=== PATIENT | female | born 1965 | race Caucasian/White ===

== ENCOUNTER → 2023-06-30 11:51 | Outpatient (REF) | payer OTHER, SELFPAY | LOC: MRI 11:51 | PROVIDERS: ATTENDING PHYSICIAN Physician Assistant Surgical; FAMILY PHYSICIAN Registered Nurse | DX: M54.2 Cervicalgia (principal) | CPT/HCPCS: 72141 ==

== ENCOUNTER → 2023-11-10 09:46 | Outpatient (REF) | payer OTHER, SELFPAY | LOC: WDC 09:46 | PROVIDERS: ATTENDING PHYSICIAN Nurse Practitioner Adult Health; FAMILY PHYSICIAN Physician Assistant Medical | DX: N64.4 Mastodynia (principal); N63.21 Unspecified lump in the left breast, upper outer quadrant | CPT/HCPCS: 76642; 77062; 77066 ==

== ENCOUNTER 2024-01-04 06:09 | Inpatient (IN) | payer OTHER, SELFPAY ==
--- NOTE | 2023-12-04 08:22 | CM ---
Patient is scheduled for an elective L TKR on 01/04/24. Spoke with patient prior to surgery via telephone. Introduced role of Orthopedic Navigator. Patient reports that she lives with her and daughter in a two story home. There are two steps
to enter and a flight of steps to the second floor. She sleeps on the first floor where there is a full bathroom. She currently functions independently and uses a cane. She also a rolling walker. She has had VN services through [facility]. PCP is Melina
Sixto.
Discussed orthopedic program and post surgical plans. Reviewed anticipated length of stay and that goal is for her to return home at discharge. Also reviewed outpatient PT. Patient is in agreement with tentative plan and will go directly to
outpatient PT at [facility]. She will have support from her when she goes home.
Patient will complete online education.
Plan: Orthopedic Navigator will remain available to assist with the care of patient and will reassess discharge needs after surgery.
[2023-12-11 13:20] LABS: Hematocrit 43.2 % (37.0-47.0); Hemoglobin 14.6 g/dL (12.0-16.0); Mean Corp Hgb Conc. 33.8 g/dL (33.0-37.0); Mean Corpuscular Hgb 30.6 pg (27.0-31.0); Mean Corpuscular Volume 90.6 fL (81.0-99.0); Mean Platelet Volume 10.8 fL (7.4-10.4); Platelet Count 237 10^3/uL (130-400); Red Blood Cell Count 4.77 10^6/uL (4.20-5.40); Red Cell Dist. Width 12.7 % (11.5-14.5); White Blood Cell Count 6.8 10^3/uL (4.8-10.8)
[2023-12-11 13:40] LABS: ALT (SGPT) 26 U/L (0-35); AST (SGOT) 30 U/L (14-36); Albumin 4.5 g/dl (3.5-5.0); Alkaline Phosphatase 89 U/L (38-126); Blood Urea Nitrogen 17 mg/dl (7-17); Calcium 9.7 mg/dl (8.4-10.2); Carbon Dioxide 29 mmol/L (22-30); Chloride 100 mmol/L (98-107); Glucose 105 mg/dl (70-99); Potassium 4.3 mmol/L (3.5-5.1); Sodium 137 mmol/L (135-145); Total Protein 7.1 g/dl (6.3-8.2); eGFR > 60.00
[2023-12-11 13:53] VITALS: BMI 42.2
[2023-12-11 14:12] LABS: Glycohemoglobin (HgbA1c) 5.2 % (4.0-5.6)
--- NOTE | 2023-12-28 12:15 | PTCARENOTE ---
Romina in anesthesia notified of patient's Dilaudid intrathecal pain pump
[2024-01-01 09:11] VITALS: BMI 42.2
[2024-01-04] VITALS (28 sets, daily range): BP systolic 109–151; BP diastolic 59–110; PULSE 78; BMI 42.2
[2024-01-04] MEDS: NORMOSOL-R 1000 IV ×2 (06:46→12:29)
[2024-01-04] MEDS: CELEBREX 200 MG PO (06:46)
[2024-01-04] MEDS: TYLENOL 650 MG PO ×5 (06:46→23:16)
[2024-01-04] MEDS: DILAUDID 0.5 MG IV ×2 (09:37→09:46)
[2024-01-04] MEDS: MORPHINE SULFATE 4 MG IV (10:02)
[2024-01-04] MEDS: DILAUDID 1 MG IV ×2 (10:20→10:31)
[2024-01-04] MEDS: DEMEROL 50 MG IV (10:46)
--- NOTE | 2024-01-04 11:39 | SUR.PHASEI ---
0950: MD Melo contacted about pt. pain, Pt. is screaming 10/10 pain, restless with all pain being directed towards L-Knee. MD Melo made RN aware to give 4mg of IV Morphine with no relief from the two doses of PRN 0.5mg Dilaudid pushes. With no
relief from morphine MD Melo made RN aware to give 1mg of Dilaudid and then after another 10 minutes later if there is no relief to give another 1mg. If there is no relief from the total two doses of 1mg Dilaudid PRN to follow up with 50mg of
Demerol. 1050: Pt. received the two PRN doses of 1mg push of Dilaudid followed by the 50mg of Demerol with no relief. Trista Orellana and MD Adrian consulted and Trista Orellana at bedside. Pt. appears calm yet still endorses 10/10 pain directed
toward the knee, VSS will continue to monitor at this time.
[2024-01-04] MEDS: TORADOL 15 MG IV ×2 (12:31→19:34)
[2024-01-04] MEDS: DILAUDID 8 MG PO ×2 (12:37→16:37)
--- NOTE | 2024-01-04 12:42 | W.PN.UPDATE ---
Update Note
Progress Note Update
Patient reporting 03/07 pain in PACU-has indwelling pain pump and is opioid tolerant with chronic pain and spinal stenosis with hx lumbar and cervical lami-fusions
--discussed with patient--Dilaudid 8mg po Q4h prn per Dr. Busby instruction-continue pain pump rate
--will include Lyrica, Dexamethasone, IV Toradol, Celecoxib and IV Ativan to address inflammation, spasm and radiculopathy which is pre-existing.
--will take time for full effect and will au-xmuepi-dmohlci vitals-Midodrine if indicated to maintain BP
--- NOTE | 2024-01-04 14:49 | W.PN.UPDATE ---
Update Note
Progress Note Update
Patient seen and examined. VSS. Pulm: nonlabored. CV: regular. Abd: benign. LLE: Calf soft. NVI distally. Able to fully extend. Dressing CDI. Post op xray as expected. Requiring additional pain meds which is expected given her history.
Plan for ASA for DVT prophylaxis. Plan for discharge home tomorrow with outpatient PT on Monday.
[2024-01-04] MEDS: ANCEF 5 IV ×2 (16:05→23:16)
--- NOTE | 2024-01-04 16:11 | PTCARENOTE ---
Patient received from PACU in bed; IVF infusing; Left knee aquacell with scant amount of sanguinous drainage; Patient has positive sensation to bilateral lower extremities; Good movement in RLE; Trace movement in LLE; Pedal pulses +2 to palpation
bilaterally; Patient is alert to self, place, and time; Continuous pulse ox in place per order; Call lozada within reach; Patient oriented to room and unit; Bed in lowest position, wheels locked; Care ongoing
[2024-01-04] MEDS: ABILIFY PO (17:37)
[2024-01-04] MEDS: ASPIRIN 325 MG PO (17:37)
[2024-01-04] MEDS: COLACE 100 MG PO (19:32)
[2024-01-04] MEDS: BACTROBAN 2% OINTMENT 1 APPLIC NASAL (19:32)
[2024-01-04] MEDS: DECADRON 6 MG IV (19:33)
[2024-01-04] MEDS: LYRICA 75 MG PO (19:34)
[2024-01-04] MEDS: SENOKOT 17.2 MG PO (19:34)
[2024-01-04] MEDS: ATIVAN PO (20:00)
[2024-01-04] MEDS: PROTONIX 40 MG PO (21:17)
[2024-01-05 03:52] VITALS: BP 104/48
[2024-01-05] MEDS: TYLENOL PO (04:59)
--- NOTE | 2024-01-05 07:07 | W.PN.ORTHO ---
Today's Communication / Plan
-
Plan for discharge home today. Outpatient PT on Monday
Assessment
.
Distal Motor Intact: Yes
Dressing:
Clean, dry and intact.
Assessment:
Much better this morning regarding pain control following R TKR.
Plan
.
Surgery / Date: 01/04/2024
DVT Prophylaxis: Aspirin
Activity:
Out of bed.
PT/OT
Discharge Plan: Home w/ Outpatient PT
Subjective
.
.:
Patient resting comfortably. Was OOB yesterday and last night. Looks much more comfortable today.
Vital Signs and Labs
.
Vital Signs and Labs:
Lab Results
12/11/23 12:07
12/11/23 12:07
Temp Pulse Resp BP Pulse Ox
98.1 F 60 14 104/48 95
01/05/24 03:52 01/05/24 03:52 01/05/24 03:52 01/05/24 03:52 01/05/24 03:52
Non-invasive Hgb result: 11.8
Physical Exam
-
Pulm: nonlabored
CV: regular
Abd: benign
Ext: NVI distally. Dressing CDI. GRZEGORZ hose tight. Calf soft. Able to fully extend.
[2024-01-05 07:30] VITALS: BP 126/52
[2024-01-05] MEDS: DILAUDID 8 MG PO ×2 (08:00→12:20)
[2024-01-05] MEDS: COLACE 100 MG PO (09:26)
[2024-01-05] MEDS: ABILIFY 10 MG PO (09:27)
[2024-01-05] MEDS: ASPIRIN 325 MG PO (09:27)
[2024-01-05] MEDS: TYLENOL 650 MG PO ×2 (09:27→12:20)
[2024-01-05] MEDS: SENOKOT 17.2 MG PO (09:28)
[2024-01-05] MEDS: CELEBREX 200 MG PO (09:28)
[2024-01-05] MEDS: ATIVAN 1 MG PO (09:35)
[2024-01-05] MEDS: LYRICA 75 MG PO (09:38)
[2024-01-05] MEDS: DECADRON 6 MG IV (09:38)
[2024-01-05] MEDS: TORADOL 15 MG IV (09:39)
[2024-01-05] MEDS: BACTROBAN 2% OINTMENT 1 APPLIC NASAL (09:40)
--- NOTE | 2024-01-05 09:50 | CM ---
Addendum entered by Lisa Jauregui 01/05/24 13:06:
patient has asked for vn but she is going to op physical therapy monday and cannot be seen by vn in the home.
Original Note:
met with patient and her at bedside.patient is sp left tka,she is amb with cane/walker.donato has an appt with [facility] on monday.patient is stable to dc home today.
[2024-01-05 10:37] VITALS: BP 118/67; PULSE 74
--- NOTE | 2024-01-05 11:28 | W.PN.ORTHO ---
Today's Communication / Plan
-
d/c
Assessment
.
Distal Motor Intact: Yes
Dressing:
Clean, dry and intact.
Assessment:
Patient reported 10/10 pain in PACU-has indwelling pain pump and is opioid tolerant with chronic pain and spinal stenosis with hx lumbar and cervical lami-fusions
--discussed with patient--Dilaudid 8mg po Q4h prn per Dr. Busby instruction-continue pain pump rate
--have added include Lyrica, Dexamethasone, IV Toradol, Celecoxib and IV Ativan to address inflammation, spasm and radiculopathy which is pre-existing.
--pain now well controlled-OP Rxs provided at pre-op [facility] visit
Plan
.
Surgery / Date: L LAVELL Adrian 01/04/2024
DVT Prophylaxis: Aspirin
Activity:
Out of bed.
PT/OT
Discharge Plan: Home w/ Outpatient PT
Subjective
.
.:
Patient resting comfortably.
Vital Signs and Labs
.
Vital Signs and Labs:
Lab Results
12/11/23 12:07
12/11/23 12:07
Temp Pulse Resp BP Pulse Ox
98.6 F 68 16 126/52 97
01/05/24 07:30 01/05/24 07:30 01/05/24 07:30 01/05/24 07:30 01/05/24 07:55
Non-invasive Hgb result: 11.8
Physical Exam
-
HEENT: No pallor, cyanosis, or jaundice. Throat clear.
NECK: Supple. No JVD.
RESPIRATORY: Lungs clear to auscultation.
CVS: S1, S2 normal. RRR.� No murmur, rub or gallop.
ABDOMEN: Soft, non-tender. No distension. BS+/normal.
EXTREMITIES: strength equal, no calf pain with palpation
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 No focal deficits. 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
[2024-01-05 11:45] VITALS: BP 122/63
--- NOTE | 2024-01-05 11:53 | W.DS.TRANS ---
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
-
Discharge Instructions:
Sleep Apnea Risk Intermediate
Discharge Diagnosis/Procedures L TKA Dr. Adrian 01/04/24
Diet As tolerated
Activity With Walker
Driving Restrictions No driving
Bathing Restrictions OK to Shower
Other Services PT
Instructions:
Stand-Alone Forms: Total Hip/Knee Replacement D/C
Changes to Home Medications: Yes
Discharge Medications:
DC Medications w/original date entered in [employer]
Patients Own Pain Pump 1 dose INJ .CONTINUOUSLY Pain 07/17/18
aripiprazole 5 mg tablet 10 mg PO DAILY Mental Health/Anxiety 07/17/18
erenumab-aooe 70 mg/mL subcutaneous auto-injector (Aimovig Autoinjector) 140 mg SQ MONTHLY MIGRAINE PREVENTION 07/17/18
zolmitriptan 5 mg tablet (Zomig) 2.5 mg PO PRN PRN migraine 07/17/18
Med Marijuana 1 dose PO BID PRN anxiety 12/28/23
calcium 1 dose PO DAILY Supplement 12/28/23
ibuprofen 200 mg tablet (Advil) 200 mg PO PRN PRN pain 12/28/23
multivitamin 1 cap PO DAILY Supplement 12/28/23
mupirocin 2 % topical ointment 1 applic topical BID Skin Issues 12/28/23
oxymetazoline 0.05 % nasal mist (Afrin No Drip (oxymetazoline)) 2 spray intranasal Q12H PRN congestion 12/28/23
timolol 0.5 % eye drops 1 drp ophthalmic (eye) DAILY glaucoma 12/28/23
famotidine-Ca carb-mag hydrox 10 mg-800 mg-165 mg chewable tablet (Pepcid Complete) 1 tab PO BID PRN heartburn 01/04/24
Saccharomyces boulardii 250 mg capsule (Florastor) 250 mg PO BID #1 cap 01/05/24
acetaminophen 325 mg capsule (Tylenol) 650 mg (2 x 325 mg) PO QID #2 caps 01/05/24
aspirin 325 mg tablet 325 mg PO DAILY blood clot prevention #1 tab 01/05/24
cefadroxil 500 mg capsule 500 mg PO BID infection prevention #14 caps 01/05/24
celecoxib 200 mg capsule 200 mg PO DAILY anti-inflammatory #14 caps 01/05/24
dexamethasone 4 mg tablet 4 mg PO BID inflammation #6 tabs 01/05/24
docusate sodium 100 mg capsule (Colace) 100 mg PO BID stool softner #1 cap 01/05/24
gabapentin 300 mg capsule 300 mg PO BID sleep/pain #20 caps 01/05/24
hydromorphone 8 mg tablet (Dilaudid) 8 mg PO Q6H PRN severe breakthrough pain #0 tabs 01/05/24
lorazepam 1 mg tablet (Ativan) 1 mg PO HS sleep/muscle pain #5 tabs 01/05/24
magnesium hydroxide 400 mg/5 mL oral suspension (Milk of Magnesia) 30 ml PO HS PRN Constipation #1 mL 01/05/24
ondansetron 4 mg disintegrating tablet 4 mg PO Q6H PRN n/v #20 tabs 01/05/24
sennosides 8.6 mg tablet (Senokot) 17.2 mg (2 x 8.6 mg) PO BID laxative #2 tabs 01/05/24
Home Medication Changes
aspirin 325 mg tablet 325 mg PO DAILY blood clot prevention #1 tab 01/05/24�
cefadroxil 500 mg capsule 500 mg PO BID infection prevention #14 caps 01/05/24�
celecoxib 200 mg capsule 200 mg PO DAILY anti-inflammatory #14 caps 01/05/24�
dexamethasone 4 mg tablet 4 mg PO BID inflammation #6 tabs 01/05/24�
gabapentin 300 mg capsule 300 mg PO BID sleep/pain #20 caps 01/05/24�
hydromorphone 8 mg tablet (Dilaudid) 8 mg PO Q6H PRN severe breakthrough pain #0 tabs 01/05/24�
lorazepam 1 mg tablet (Ativan) 1 mg PO HS sleep/muscle pain #5 tabs 01/05/24�
ondansetron 4 mg disintegrating tablet 4 mg PO Q6H PRN n/v #20 tabs 01/05/24�
Pending Results: No
[2024-01-05 11:57] VITALS: BP 113/67; BP 117/66; PULSE 72; O2SAT 99
== END 2024-01-05 13:15 | disposition home or self-care (01) | DRG 470 ==
LOC: 2 SOUTH 06:09
PROVIDERS: ADMITTING PHYSICIAN Orthopaedic Surgery; FAMILY PHYSICIAN Physician Assistant Medical
PROC: 0SRD0J9 Replacement of Left Knee Joint with Synthetic Substitute, Cemented, Open Approach (ICD-10-PCS; 2024-01-04)
DX: M17.12 Unilateral primary osteoarthritis, left knee (principal); G89.29 Other chronic pain; M54.16 Radiculopathy, lumbar region
CPT/HCPCS: 36415; 73560; 80053; 83036; 85027; 87070; 93005; 97110; 97116; 97162; 97166; 97530; 97535; C1713; C1776

== ENCOUNTER → 2024-02-01 09:15 | Outpatient (REF) | payer OTHER, SELFPAY | LOC: HWRAD 09:15 | PROVIDERS: ATTENDING PHYSICIAN Nurse Practitioner Adult Health; FAMILY PHYSICIAN Physician Assistant Medical | DX: N95.0 Postmenopausal bleeding (principal) | CPT/HCPCS: 76830; 76856 ==

== ENCOUNTER → 2024-03-29 11:15 | Outpatient (REF) | payer OTHER, SELFPAY | LOC: CLAB 11:15 | PROVIDERS: ATTENDING PHYSICIAN Obstetrics & Gynecology Gynecology | DX: N39.9 Disorder of urinary system, unspecified (principal); N84.0 Polyp of corpus uteri | CPT/HCPCS: 88305 ==

== ENCOUNTER 2024-05-03 08:35 | Inpatient (IN) | payer OTHER, SELFPAY ==
[2024-04-03 13:19] VITALS: BMI 45.5
[2024-04-03 13:42] LABS: Hematocrit 41.3 % (37.0-47.0); Hemoglobin 13.6 g/dL (12.0-16.0); Mean Corp Hgb Conc. 32.9 g/dL (33.0-37.0); Mean Corpuscular Hgb 29.8 pg (27.0-31.0); Mean Corpuscular Volume 90.4 fL (81.0-99.0); Mean Platelet Volume 11.1 fL (7.4-10.4); Platelet Count 229 10^3/uL (130-400); Red Blood Cell Count 4.57 10^6/uL (4.20-5.40); White Blood Cell Count 8.4 10^3/uL (4.8-10.8)
[2024-04-03 14:08] LABS: Glycohemoglobin (HgbA1c) 5.2 % (4.0-5.6)
[2024-04-03 14:09] LABS: ALT (SGPT) 21 U/L (0-35); AST (SGOT) 22 U/L (14-36); Albumin 4.2 g/dl (3.5-5.0); Alkaline Phosphatase 101 U/L (38-126); Blood Urea Nitrogen 17 mg/dl (7-17); Calcium 9.9 mg/dl (8.4-10.2); Carbon Dioxide 31 mmol/L (22-30); Chloride 100 mmol/L (98-107); Estimated Creatinine Clearance 78 ml/min; Glucose 104 mg/dl (70-99); Potassium 4.8 mmol/L (3.5-5.1); Sodium 139 mmol/L (135-145); Total Bilirubin 0.6 mg/dl (0.2-1.3); Total Protein 6.9 g/dl (6.3-8.2); eGFR > 60.00
[2024-04-26 13:00] VITALS: BMI 45.5
--- NOTE | 2024-04-26 13:01 | PTCARENOTE ---
Patient is insisting on taking Zomig prn if needed on day of surgery, she also takes Aimovig sq (due day of surgery) but will take few days early.
Both are ok with Dr Porter.
[2024-05-03] VITALS (14 sets, daily range): BP systolic 123–164; BP diastolic 61–116; PULSE 69; O2SAT 96; BMI 45.5
[2024-05-03] MEDS: TYLENOL 650 MG PO ×3 (09:32→19:43)
[2024-05-03] MEDS: CELEBREX 200 MG PO (09:32)
--- NOTE | 2024-05-03 10:26 | W.PN.UPDATE ---
Update Note
Progress Note Update
Patient known to me from prior joint-will follow same pain regimen as prior L TKA as this was effective. Patient had 10/10 intractable pain in PACU and she is opioid tolerant
--Dilaudid 8mg po Q4h prn per Dr. Busby instruction-continue pain pump rate
--will include Lyrica, Dexamethasone, IV Toradol, Celecoxib and IV Ativan to address inflammation, spasm and radiculopathy which is pre-existing.
--will take time for full effect-monitor vitals and place on tele-Midodrine if indicated to maintain BP
Morbid Obesity--BMI 45.5--have added Rx Cefadroxil ppx outpatient given risk of infection
[2024-05-03] MEDS: ATIVAN 1 MG IV ×2 (12:32→15:40)
[2024-05-03] MEDS: DILAUDID 0.5 MG IV ×4 (12:38→16:15)
[2024-05-03] MEDS: DEMEROL 12.5 MG IV ×2 (12:45→13:25)
[2024-05-03] MEDS: DILAUDID 8 MG PO ×3 (12:59→21:53)
[2024-05-03] MEDS: NORMOSOL-R/PLASMALYTE-A 1000 IV (13:06)
[2024-05-03] MEDS: TORADOL 15 MG IV ×2 (14:44→19:43)
[2024-05-03] MEDS: LYRICA 150 MG PO ×2 (14:44→19:43)
[2024-05-03] MEDS: NSS (PRESERVATIVE FREE) 0.5 ML IV (15:42)
[2024-05-03] MEDS: ABILIFY PO (16:27)
--- NOTE | 2024-05-03 16:48 | W.PN.UPDATE ---
Update Note
Progress Note Update
Patient seen and examined. VSS. Sleeping in a chair with at her bedside. Pulm: nonlabored. CV: regular
RLE: Dressing CDI. Calf soft. Postop xray as expected. ASA for DVT prophylaxis. Plan for discharge home tomorrow with outpatient PT on Monday.
[2024-05-03] MEDS: ANCEF 5 IV (17:57)
[2024-05-03] MEDS: ASPIRIN 325 MG PO (17:58)
[2024-05-03] MEDS: DECADRON 4 MG IV (19:43)
[2024-05-03] MEDS: COLACE 100 MG PO (19:43)
[2024-05-03] MEDS: SENOKOT 17.2 MG PO (19:43)
[2024-05-03] MEDS: BACTROBAN 2% OINTMENT 1 APPLIC NASAL (21:49)
[2024-05-03] MEDS: ATIVAN IV (23:11)
[2024-05-03] MEDS: NSS (PRESERVATIVE FREE) IV (23:11)
[2024-05-04] MEDS: ANCEF 5 IV (01:22)
[2024-05-04] MEDS: TYLENOL PO (01:22)
[2024-05-04] MEDS: DILAUDID PO (02:29)
[2024-05-04 03:00] VITALS: BP 117/63
[2024-05-04] MEDS: TYLENOL 650 MG PO ×2 (03:14→08:18)
[2024-05-04] MEDS: DECADRON 4 MG IV (03:14)
[2024-05-04] MEDS: DILAUDID 8 MG PO ×2 (05:23→09:40)
[2024-05-04] MEDS: ATIVAN 1 MG IV (06:05)
[2024-05-04] MEDS: NSS (PRESERVATIVE FREE) 0.5 ML IV (06:05)
[2024-05-04 07:25] VITALS: BP 112/59
[2024-05-04] MEDS: ABILIFY 10 MG PO (08:17)
[2024-05-04] MEDS: SENOKOT 17.2 MG PO (08:17)
[2024-05-04] MEDS: ASPIRIN 325 MG PO (08:17)
[2024-05-04] MEDS: CELEBREX 200 MG PO (08:17)
[2024-05-04] MEDS: LYRICA 150 MG PO (08:18)
[2024-05-04] MEDS: COLACE 100 MG PO (08:18)
[2024-05-04] MEDS: BACTROBAN 2% OINTMENT 1 APPLIC NASAL (08:18)
[2024-05-04] MEDS: TORADOL 15 MG IV (08:18)
--- NOTE | 2024-05-04 08:20 | W.PN.ORTHO ---
Today's Communication / Plan
-
POD#1 right TKA under the direction of Dr. Adrian
--Weight bearing as tolerated to right leg. Ambulate with the assistance of a walker
--PT/OT
--Continue with pain medications as needed
--Aspirin 325mg daily x4 weeks postop for DVT prophylaxis
--Primaseal dressing changed this morning. This is to remain in place for 7-10 days, then may remove
--Plan for outpatient PT starting Monday
--Will follow up outpatient two weeks postop
--Patient is medically stable for discharge to home today
Assessment
.
Distal Motor Intact: Yes
Dressing:
Clean, dry and intact.
Plan
.
Surgery / Date: Right TKA 05/03/24 ([facility])
DVT Prophylaxis: Aspirin
Activity:
Out of bed.
PT/OT
Discharge Plan: Home
Subjective
.
.:
Patient resting comfortably in bed. She states that her pain is manageable.
Vital Signs and Labs
.
Vital Signs and Labs:
Lab Results
04/03/24 12:34
04/03/24 12:34
Temp Pulse Resp BP Pulse Ox
98.3 F 76 16 112/59 90
05/04/24 07:25 05/04/24 07:25 05/04/24 07:25 05/04/24 07:25 05/04/24 07:25
Non-invasive Hgb result: 13.9
Physical Exam
-
Directed exam of right knee reveals surgical dressing in place with drainage to the center of the bandage. mild expected edema. mild general tenderness to palpation. able to perform ROM of knee 0-80. able to plantarflex/dorsiflex the ankle. calf
soft and nontender. NVI distally
--- NOTE | 2024-05-04 09:10 | W.DCSUMMARY ---
Discharge Summary
Discharge Data
Date of Admission: 05/03/24
Date of Discharge: 05/04/24
-
Pending Results: No
Hospital Course
59 year old female admitted to [facility] following elective right total knee replacement on 05/03/[address] Adrian. Her pain was controlled and she was able to work with physical therapy. She was deemed medically stable for discharge to
home. She will be weight bearing as tolerated to the right leg. She will take aspirin 325mg daily for prevention of blood clots postoperatively. She will attend outpatient physical therapy. She will follow up outpatient with Dr. Adrian two weeks
postop.
Discharge Plan
-
Patient Disposition: Home (Routine Discharge)
Discharge Diagnosis/Procedures: Right knee osteoarthritis status post right total knee replacement
Diet: As tolerated
Activity: As tolerated
Driving Restrictions: Not until seen by your Dr
Bathing Restrictions: OK to Shower
Wound Care: Dressing to be removed 7-10 days postop, then leave open to air
Stand Alone Forms: Total Hip/Knee Replacement D/C
Referrals:
Hadley Adrian MD [Active] - in two weeks
Melina Henson PA-C [Family Provider] -
Prescriptions:
New
cefadroxil 500 mg capsule
500 mg PO BID Qty: 14 0RF
Rx Instructions:
*Take w/ food
*Take w/ probiotic
*POST-OP USE
Saccharomyces boulardii [Florastor] 250 mg capsule
250 mg PO BID Qty: 1 0RF
sennosides [Senna Laxative] 8.6 mg Tablet
17.2 mg PO BID Qty: 0 0RF
aspirin 325 mg Tablet
325 mg PO DAILY 30 Days Qty: 30 0RF
docusate sodium 100 mg Capsule
100 mg PO BID Qty: 0 0RF
Continued
zolmitriptan [Zomig] 5 MG tablet
2.5 mg PO PRN PRN (Reason: migraine)
Aimovig Autoinjector 70 MG/ML auto-injector
140 mg SQ MONTHLY
Patients Own Pain Pump
1 dose INJ .CONTINUOUSLY
Patient Comments:
07/17/18 per pdmp hydromorphone, paperwork from 05/04/18 (old) states diluaded and bupv, per patient had refilled last week km
Rx Instructions:
pt will bring updated Dilaudid dosage info after refill 12/28
timolol 0.5 % Drops
1 drp OPHTHALMIC (EYE) DAILY
Rx Instructions:
right eye
multivitamin Capsule
1 cap PO DAILY
Afrin No Drip(oxymetazolin) 0.05 % Mist
2 spray INTRANASAL DAILY
Med Marijuana
1 dose PO BID PRN (Reason: anxiety)
Pepcid Complete 10-800-165 mg Tablet,Chewable
1 tab PO DAILY
ondansetron 4 mg tablet,disintegrating
4 mg PO Q6H PRN (Reason: n/v) Qty: 20 0RF
Rx Instructions:
take 1/2h b/f pain med if recurrent nausea
allow to dissolve in mouth w/o water
acetaminophen [Tylenol] 325 mg capsule
650 mg PO QID Qty: 2 0RF
Rx Instructions:
for post op
hydromorphone [Dilaudid] 8 mg Tablet
8 mg PO Q6H PRN (Reason: severe breakthrough pain) Qty: 0 0RF
Patient Comments:
'Patient took 4 mg PO'
gabapentin 300 mg capsule
300 mg PO BID Qty: 20 0RF
aripiprazole [Abilify] 10 mg Tablet
10 mg PO DAILY
Discharge Orders:
Discharge Patient (As Directed); Ordered 05/04/24
Ordered By: Jaleesa Cardoso
Discharge Date and Time
Print Language: [place] ISLANDER
--- NOTE | 2024-05-04 09:13 | W.DS.TRANS ---
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
-
Discharge Instructions:
Sleep Apnea Risk Low
Discharge Diagnosis/Procedures Right knee osteoarthritis status post right
total knee replacement
Diet As tolerated
Activity As tolerated
Driving Restrictions Not until seen by your Dr
Bathing Restrictions OK to Shower
Wound Care Dressing to be removed 7-10 days postop, then
leave open to air
Instructions:
Stand-Alone Forms: Total Hip/Knee Replacement D/C
Changes to Home Medications: No
Discharge Medications:
DC Medications w/original date entered in [employer]
Patients Own Pain Pump 1 dose INJ .CONTINUOUSLY Pain 07/17/18
erenumab-aooe 70 mg/mL subcutaneous auto-injector (Aimovig Autoinjector) 140 mg SQ MONTHLY MIGRAINE PREVENTION 07/17/18
zolmitriptan 5 mg tablet (Zomig) 2.5 mg PO PRN PRN migraine 07/17/18
Med Marijuana 1 dose PO BID PRN anxiety 12/28/23
multivitamin 1 cap PO DAILY Supplement 12/28/23
oxymetazoline 0.05 % nasal mist (Afrin No Drip (oxymetazoline)) 2 spray intranasal DAILY Congestion 12/28/23
timolol 0.5 % eye drops 1 drp ophthalmic (eye) DAILY glaucoma 12/28/23
famotidine-Ca carb-mag hydrox 10 mg-800 mg-165 mg chewable tablet (Pepcid Complete) 1 tab PO DAILY Gastrointestinal Issue 01/04/24
acetaminophen 325 mg capsule (Tylenol) 650 mg (2 x 325 mg) PO QID #2 caps 01/05/24
gabapentin 300 mg capsule 300 mg PO BID sleep/pain #20 caps 01/05/24
hydromorphone 8 mg tablet (Dilaudid) 8 mg PO Q6H PRN severe breakthrough pain #0 tabs 01/05/24
ondansetron 4 mg disintegrating tablet 4 mg PO Q6H PRN n/v #20 tabs 01/05/24
aripiprazole 10 mg tablet (Abilify) 10 mg PO DAILY Mental Health/Anxiety 11/29/24
Saccharomyces boulardii 250 mg capsule (Florastor) 250 mg PO BID #1 cap 05/03/24
cefadroxil 500 mg capsule 500 mg PO BID infection prevention #14 caps 05/03/24
aspirin 325 mg tablet 325 mg PO DAILY 30 days #30 tabs 05/04/24
docusate sodium 100 mg capsule 100 mg PO BID #0 caps 05/04/24
sennosides 8.6 mg tablet (Senna Laxative) 17.2 mg (2 x 8.6 mg) PO BID #0 tabs 05/04/24
Home Medication Changes
Pending Results: No
--- NOTE | 2024-05-04 10:42 | CM ---
Met with pt at bedside
Pt reports she lives with her in a 2 story home; 1step to enter, FF set-up
Active, independent, drives
DME - rolling walker, single point cane, raised toilet seat
SNF/HH - denies past hx
Has ride home at discharge
PCP - Melina Henson
Pharm - [facility]
Pt is scheduled for outpatient PT on Saturday 05/05 at [facility]. Has Rx
Plan - home with outpatient PT
== END 2024-05-04 10:42 | disposition home or self-care (01) | DRG 470 ==
LOC: 2 SOUTH 08:35
PROVIDERS: ADMITTING PHYSICIAN Orthopaedic Surgery; FAMILY PHYSICIAN Physician Assistant Medical
PROC: 0SRC0J9 Replacement of Right Knee Joint with Synthetic Substitute, Cemented, Open Approach (ICD-10-PCS; 2024-05-03)
DX: M17.11 Unilateral primary osteoarthritis, right knee (principal); Z68.42 Body mass index [BMI] 45.0-49.9, adult; E66.01 Morbid (severe) obesity due to excess calories; Z96.652 Presence of left artificial knee joint; Z98.1 Arthrodesis status
CPT/HCPCS: 36415; 73560; 80053; 83036; 85027; 87070; 97110; 97116; 97162; 97167; C1713; C1776; C9290

== ENCOUNTER → 2024-05-21 14:00 | Outpatient (REF) | payer OTHER, SELFPAY | LOC: WDC 14:00 | PROVIDERS: ATTENDING PHYSICIAN Nurse Practitioner Adult Health; FAMILY PHYSICIAN Physician Assistant Medical | DX: R92.8 Other abnormal and inconclusive findings on diagnostic imaging of breast (principal) | CPT/HCPCS: 76642 ==

== ENCOUNTER → 2024-07-25 08:49 | Outpatient (REF) | payer OTHER, SELFPAY | LOC: RAD 08:49 | PROVIDERS: ATTENDING PHYSICIAN Nurse Practitioner Adult Health; FAMILY PHYSICIAN Physician Assistant Medical | DX: N93.9 Abnormal uterine and vaginal bleeding, unspecified (principal); N83.209 Unspecified ovarian cyst, unspecified side | CPT/HCPCS: 76830; 76856 ==

== ENCOUNTER → 2024-11-15 15:06 | Outpatient (REF) | payer OTHER, SELFPAY | LOC: WDC 15:06 | PROVIDERS: ATTENDING PHYSICIAN Nurse Practitioner Adult Health; FAMILY PHYSICIAN Physician Assistant Medical | DX: Z12.31 Encounter for screening mammogram for malignant neoplasm of breast (principal) | CPT/HCPCS: 77063; 77067 ==

== ENCOUNTER → 2024-12-19 08:53 | Outpatient (REF) | payer OTHER, SELFPAY | LOC: WDC 08:53 | PROVIDERS: ATTENDING PHYSICIAN Nurse Practitioner Adult Health; FAMILY PHYSICIAN Physician Assistant Medical | DX: R92.8 Other abnormal and inconclusive findings on diagnostic imaging of breast (principal) | CPT/HCPCS: 76642 ==